=== PATIENT | male | born 1970 | race Caucasian/White ===

== ENCOUNTER 2016-12-08 10:26 | Emergency (ER) | payer OTHER ==
[~2016-12-08] VITALS: Ht 167.6 cm; Wt 74.8 kg
[~2016-12-08 10:26] MED LIST: PERCOCET 325 MG1 TA2 PO
[2016-12-08] MEDS ORDERED: PERCOCET 5-3251 EACH PO (11:13)
--- NOTE | 2016-12-08 11:15 | ED EAR COMPLAINT ---
History of Present Illness General Chief Complaint: Ear Complaints Stated Complaint: CELLULITIS OF EAR LOBE Source: patient Exam Limitations: no limitations Vital Signs & Intake/Output Vital Signs & Intake/Output Vital Signs Date Time Temp Pulse Resp B/P Pulse O2 O2 Flow FiO2 Ox Delivery Rate 12/08 1039 98.9 71 20 134/89 96 Room Air Allergies Coded Allergies: NO KNOWN ALLERGIES (12/08/16) Reconcile Medications Clindamycin HCl 300 MG CAPSULE 1 CAP PO Q6 ANTIBIOTIC, INFECTION (Reported) Ibuprofen 600 MG TABLET 1 TAB PO Q6 PAIN (Reported) with food Ofloxacin 0.3 % DROPS 10 GTT OT BID ANTIBIOTIC, INFECTION (Reported) Triage Note: TRIAGE: PT TO ER C/C PAIN FROM L EAR TO L CHEEK. ONSET THURSDAY, CONSTANT AND WORSENING SINCE ONSET. [facility], WAS DIAGNOSED WITH CELLULITIS. WAS GIVEN CLINDAMYCIN, IBUPROFEN AND OFLOXACIN GTTS. WENT TODAY FOR RECHECK AND WAS REFERRED TO ER FOR EVAL. Triage Nurses Notes Reviewed? yes Onset: Abrupt Duration: day(s):, constant, continues in ED Timing: recent history Injury Environment: home Severity: moderate, severe No Modifying Factors: none HPI: 46-year-old male comes into emergency room for further evaluation of left ear pain has been going on recently. Patient reports that he went to a walk-in clinic couple days ago and was started on oral antibiotics for an ear infection. Patient was also given topical drops and Motrin for pain. Patient reports that the ear pain has been persistent radiates down left side of his jaw. Denies any chest pain or shortness of breath. Denies any vomiting. Denies any fever. Denies any trauma or any other associated symptoms. (EMMANUEL SANCHEZ) Past History Travel History Traveled to [place] past 21 day No Medical History Any Pertinent Medical History? 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 No (EMMANUEL SANCHEZ) Review of Systems Review of Systems Constitutional: Reports: no symptoms. EENTM: Reports: see HPI. Respiratory: Reports: no symptoms. Cardiovascular: Reports: no symptoms. GI: Reports: no symptoms. Genitourinary: Reports: no symptoms. Musculoskeletal: Reports: no symptoms. Skin: Reports: no symptoms. Neurological/Psychological: Reports: no symptoms. Hematologic/Endocrine: Reports: no symptoms. Immunologic/Allergic: Reports: no symptoms. All Other Systems: Reviewed and Negative (EMMANUEL SANCHEZ) Physical Exam Physical Exam General Appearance: well developed/nourished Head: atraumatic Eyes: Bilateral: normal appearance, EOMI. Ears: Left: canal normal, Tympanic dull. Nose: normal inspection Mouth/Throat: normal mouth inspection, pharynx normal, TENDERNESS OVER LEFT tmj Neck: normal inspection Cardiovascular/Respiratory: no respiratory distress Back: normal inspection Neurologic/Psych: awake, alert, oriented x 3, normal mood/affect Skin: intact, normal color, warm/dry (EMMANUEL SANCHEZ) Progress Differential Diagnoses I considered the following diagnoses in my evaluation of the patient: Otitis media, dental infection, otitis externa, TMJ, Plan of Care: 12/08/2016 11:29:57 AM ResumE antibiotics. This could potentially be dental or TMJ related. Patient referred to dentist. Return if any other concerns worsening symptoms. Patient clinically looks well. Initial ED EKG: none (EMMANUEL SANCHEZ) Departure Departure Disposition: HOME OR SELF CARE Condition: Stable Clinical Impression Primary Impression: Left ear pain Referrals: SHEA ARELLANO,ORIANA DAWSON (PCP/Family) Additional Instructions: Continue taking oral antibitoics as prescribed. take percocet as prescribed. rest. return if any other concerns/worsening of symptoms. F/U with dentist and ENT dr. Please go over all results of today's visit with your primary care doctor. Contact your primary care doctor to let them know you were here in the emergency room. There may be nonspecific findings which may not be related to your visit today here in the emergency room but may require further evaluation and chronic monitoring by your primary care doctor. If you had a laceration today the chance of foreign body always remains. You should follow-up with your primary care doctor for recheck in 3-5 days for a wound check. If you had an x-ray done there is a chance that a fracture could have been missed on initial read and you should follow-up with your primary care doctor for repeat x-rays if symptoms persist. If your blood pressure was elevated here in the emergency room please have rechecked by her primary care doctor within the next 48 hours by your primary care doctor. If you were prescribed a narcotic here in the emergency room or any type of controlled substances you're not allowed to drive while taking this medication or operate any type of heavy machinery. Narcotics can make you feel lightheaded dizziness nausea and can cause constipation. You may need to sisal picker a stool softener. Thank you for choosing [facility] emergency room. Please return to the emergency room immediately if you have any other concerns worsening of symptoms. Departure Forms: Customer Survey General Discharge Information (EMMANUEL SANCHEZ) PA/HEAD WRESTLING COACH Co-Sign Statement Statement: ED Attending supervision documentation- [] I saw and evaluated the patient. I have also reviewed all the pertinent lab results and diagnostic results. I agree with the findings and the plan of care as documented in the PA's/HEAD WRESTLING COACH's documentation. [X] I have reviewed the ED Record and agree with the PA's/HEAD WRESTLING COACH's documentation. [] Additions or exceptions (if any) to the PAs/HEAD WRESTLING COACH's note and plan are summarized below: [] (SAMSON ARELLANO,FRANSISCO)
[2016-12-08] MEDS ORDERED: IBUPROFEN600 M1 PO (11:21)
[2016-12-08] MEDS ORDERED: OFLOXACIN5 M1 OT (11:22)
[2016-12-08] MEDS ORDERED: CLINDAMYCIN HC300 M1 PO (11:22)
[2016-12-08 11:48] VITALS: BP 130/88
== END 2016-12-08 11:48 ==
LOC: ERH 10:26
DX: H92.02 Otalgia, left ear (principal)

== ENCOUNTER 2017-01-01 17:28 | Emergency (ER) | payer OTHER ==
[~2017-01-01 17:28] MED LIST changes: +CLINDAMYCIN HC300 M1 PO; +IBUPROFEN600 M1 PO; +OFLOXACIN5 M1 OT; +PERCOCET 5-3251 EACH PO
[2017-01-01 18:24] LABS: ABSOLUTE BASOPHIL COUNT 0 /CUMM (0.0-0.2); ABSOLUTE EOSINOPHIL COUNT 0.1 /CUMM (0.0-0.7); ABSOLUTE GRANULOCYTE CT 9.4 /CUMM (1.4-6.5); ABSOLUTE LYMPH COUNT 1.8 /CUMM (1.2-3.4); ABSOLUTE MONOCYTE COUNT 1.2 /CUMM (0.10-0.60); BASOPHIL % 0.2 % (0.0-2.0); EOSINOPHIL % 1.1 % (0-5); HEMATOCRIT 40.4 % (42-52); MEAN CORPUSCULAR HGB 32.3 PG (27.0-31.0); MEAN CORPUSCULAR VOLUME 95.2 FL (80.0-94.0); MEAN PLATELET VOLUME 8.5 FL (7.4-10.4); PLATELET COUNT 280 /CUMM (130-400); RBC DISTRIBUTION WIDTH 12.7 % (11.5-14.5); RED BLOOD CELL CT 4.24 /CUMM (4.70-6.10); WHITE BLOOD CELL COUNT 12.5 /CUMM (4.8-10.8)
--- NOTE | 2017-01-01 18:55 | ED GI/GU/ABDOMINAL COMPLAINT ---
History of Present Illness General Chief Complaint: Abdominal Pain/Flank Pain Stated Complaint: ABD PAIN, +ND, BEAUCHAMP, X 4 DAYS Source: patient, family Exam Limitations: no limitations Vital Signs & Intake/Output Vital Signs & Intake/Output Vital Signs Date Time Temp Pulse Resp B/P Pulse O2 O2 Flow FiO2 Ox Delivery Rate 01/01 2017 98.5 78 20 114/70 98 01/01 1758 99.1 80 16 125/75 98 Room Air Allergies Coded Allergies: NO KNOWN ALLERGIES (12/08/16) Triage Note: TRIAGE; PT TO ED C/O STOMACH PAINS X1 WEEK GETTING WORSE. STATES UNABLE TO KEEP ANYTHING DOWN. STATES EVERYTHING HAS A FUNNY METALLIC TASTE WELL. C/O BEAUCHAMP AND JOINTS ACHY WELL. HAS A HX OF DIVERTICULITIS AND 6INCHES OF COLON REMOVED. STATES PAIN FEELS LIKE THE DIVERTICULITIS, DENIES ANY VISIBLE BLOOD IN STOOLS, BUT STOOLS ARE DARK. Triage Nurses Notes Reviewed? yes Duration: getting worse Timing: recent history Quality/Severity: sharpness, severe, stabbing Severity Numbers: 7 Location: left lower quadrant Radiation: no radiation Activities at Onset: none Prior Abdominal Problems: similar symptoms HPI: Patient is a 46-year-old male with a past medical history of diverticulitis with colon resection who presents to emergency with a six-day history of loose watery diarrhea production and left lower quadrant pain. Patient has been on antibiotics approximately 2 weeks ago for tooth extraction Denies any bright red blood or melena stool. Denies any fevers but does have chills. Patient is able tolerate by mouth with worsening symptoms. No vomiting has occurred. (ELLEN CRUZ,NESS) Reconcile Medications Ciprofloxacin HCl (Cipro) 500 MG TABLET 1 TAB PO BID DIVERTICULITIS Clindamycin HCl 300 MG CAPSULE 1 CAP PO Q6 ANTIBIOTIC, INFECTION (Reported) Ibuprofen 600 MG TABLET 1 TAB PO Q6 PAIN (Reported) with food Metronidazole (Flagyl) 500 MG TABLET 1 TAB PO TID DIVERTICULITIS (ANA LILIA PAUL MD) Past History Travel History Traveled to [place] past 21 day No Medical History Any Pertinent Medical History? 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 No (NESS VELASQUEZ) Review of Systems Review of Systems Constitutional: Reports: see HPI, chills. Denies: fever. EENTM: Reports: no symptoms. Respiratory: Reports: no symptoms. Cardiovascular: Reports: no symptoms. GI: Reports: see HPI, abdominal pain, diarrhea. Genitourinary: Reports: no symptoms. Musculoskeletal: Reports: no symptoms. Skin: Reports: no symptoms. Neurological/Psychological: Reports: no symptoms. Hematologic/Endocrine: Reports: no symptoms. Immunologic/Allergic: Reports: no symptoms. All Other Systems: Reviewed and Negative (NESS VELASQUEZ) Physical Exam Physical Exam General Appearance: no apparent distress, alert, comfortable Gastrointestinal: normal bowel sounds, soft, MODERATE LEFT LOWER QUADRANT POINT TENDERNESS, NO REBOUND TENDERNESS NO PERITONEAL SIGNS. nO RIGHT LOWER QUADRANT PAIN Comments: Well-developed well-nourished person in no acute distress HEENT: Normal EENT exam Neck: Supple, no lymphadenopathy, normal range of motion without pain or tenderness Back: Nontender, no CVA tenderness. Cardiovascular: Regular rate and rhythms no murmurs rubs or gallops, normal JVP Respiratory: Chest nontender. No respiratory distress.breath sounds clear to auscultation bilaterally Extremity: No edema, no calf tenderness to palpation, normal and equal pulses. Neuro: Alert oriented x3, motor sensory normal, Skin: No appreciable rash on exposed skin, skin is warm and dry. Psych: Mood and affect is normal, memory and judgment is normal. Core Measures ACS in differential dx? No Severe Sepsis Present: No Septic Shock Present: No (NESS VELASQUEZ) Progress Differential Diagnosis: AAA, AMI, appendicitis, biliary colic, bowel obstruction , colon cancer, cholecystitis, diverticulitis, epididymitis, esophageal varices, gastritis, hepatitis, hernia, hemorrhoids, ischemic bowel, inflamm bowel dis, Shanthi-Matt tear, orchitis, pancreatitis, prostatitis, peptic ulcer, PUD/GERD, perforated viscous, pyelonephritis, SBO, testicular torsion, ureterolithiasis, urinary retention, urethritis, UTI/pyelo Plan of Care: Orders Procedure Date/time Status CULTURE,STOOL 01/01 1855 Active OVA AND PARASITE ANTIGENS 01/01 1855 Active C.DIFFICILE 01/01 1855 Active Add-on Test (ER Only) 01/01 1853 Active LIPASE 01/01 1800 Complete COMPREHENSIVE METABOLIC PANEL 01/01 1800 Complete CBC WITHOUT DIFFERENTIAL 01/01 1800 Complete AMYLASE 01/01 1800 Complete Laboratory Tests 01/01/17 1800: Anion Gap 12, Estimated GFR > 60, BUN/Creatinine Ratio 13.3, Glucose 76, Calcium 9.1, Total Bilirubin 0.4, AST 36, ALT 99 H, Alkaline Phosphatase 87, Total Protein 7.1, Albumin 4.1, Globulin 3.0, Albumin/Globulin Ratio 1.4, Amylase 51, Lipase 40, CBC w Diff NO MAN DIFF REQ, RBC 4.24 L, MCV 95.2 H, MCH 32.3 H, RDW 12.7, MPV 8.5, Gran % 75.0, Lymphocytes % 14.3 L, Monocytes % 9.4 H, Eosinophils % 1.1, Basophils % 0.2, Absolute Granulocytes 9.4 H, Absolute Lymphocytes 1.8, Absolute Monocytes 1.2 H, Absolute Eosinophils 0.1, Absolute Basophils 0, PUBS MCHC 34.0 Microbiology 01/01 1855 STOOL: Cryptosporidium Antigen - ORD 01/01 1855 STOOL: Giardia Antigen (ELIER) - ORD 01/01 1855 STOOL: Clostridium difficile Toxin A & B - ORD 01/01 1855 STOOL: Stool Culture - ORD CT scan was remarkable for thickening of COLON IN which patient due to significant history of diverticulitis and bowel resection was administered prescriptions for ciprofloxacin and Flagyl for concerns of diverticulitis. Patient was strongly advised to establish a mortar mixer operator Dr. Cole. Patient was able tolerate by mouth patient was afebrile nontoxic in no apparent distress on discharge (ELLEN CRUZ,NESS) Diagnostic Imaging: Viewed by Me: CT Scan. Radiology Impression: acute abnormality Initial ED EKG: none Comments: PATIENT: ACACIA HERNANDEZ PRESENT AGE: 46 PATIENT ACCOUNT NO: [id number] : 71 LOCATION: [facility] ORDERING PHYSICIAN: NESS CRUZ SERVICE DATE: 01/01/17 EXAM TYPE: CAT - CT ABD & PELVIS W IV CONTRAST EXAMINATION: CT ABDOMEN AND PELVIS WITH CONTRAST CLINICAL INFORMATION: Abdominal pain. History of diverticulitis. COMPARISON: CT abdomen 05/01/2014. TECHNIQUE: Multidetector volumetric imaging was performed of the abdomen and pelvis before and after the IV administration of 95 mL of Optiray 320 intravenous contrast. Sagittal and coronal reformatted images were obtained on the technologist's workstation. DLP: 300 mGy-cm FINDINGS: LUNG BASES: The visualized lung bases are unremarkable. LIVER, GALLBLADDER, AND BILIARY TREE: The liver is normal in size, shape, and attenuation. There is a stable ill-defined hypoattenuating lesion within the left hepatic lobe measuring approximately 1 cm (series 2, image 17). No biliary ductal dilatation is present. The gallbladder is decompressed, without evidence of radiopaque gallstones, gallbladder wall thickening, or obvious pericholecystic inflammatory changes. PANCREAS: Unremarkable. SPLEEN: Unremarkable. ADRENAL GLANDS: Unremarkable. KIDNEYS AND URETERS: The kidneys are normal in size and enhance homogeneously, without focal lesions. There is a 3 mm nonobstructing stone within the midpole of the right kidney. No left-sided renal stones are identified. There are no ureteral stones and there is no appreciable hydroureteronephrosis of either kidney or renal collecting system. BLADDER: Unremarkable. GASTROINTESTINAL TRACT: Evaluation of the gastrointestinal system is notable for postsurgical changes related to partial sigmoid resection and distal colonic anastomosis. Abdominal and pelvic bowel loops are normal in caliber, without findings indicative of obstruction or ileus. Of note, there is mild circumferential thickening and mucosal hyperemia of the colon, notably the cecum and ascending colon as well as the transverse and descending colon. There are mild surrounding inflammatory changes, notably within the right lower quadrant of the abdomen. This finding is nonspecific but could reflect an acute infectious or inflammatory colitis. Given the presence of diverticula along the cecum, a mild or developing cecal diverticulitis cannot be excluded. The appendix is surgically absent. Abdominal and pelvic bowel loops are normal in caliber, without findings indicative of small bowel obstruction or ileus. No organizing intra-abdominal or pelvic fluid collections are identified and there is no free intraperitoneal air. ABDOMINAL WALL: Small fat-containing umbilical hernia. LYMPH NODES: Subcentimeter shotty lymph nodes within the right lower quadrant of the abdomen. No pathologically enlarged abdominal or pelvic lymph nodes. VASCULAR: Patent abdominal vasculature. Normal course and caliber of the abdominal aorta and its branching vessels, without aneurysmal dilatation. PELVIC VISCERA: Unremarkable. OSSEOUS STRUCTURES: No acute osseous abnormality. Moderate degenerative changes of the lumbar spine at L2-L3. No visible destructive osseous lesions. Normal alignment of the imaged thoracolumbar spine. IMPRESSION: 1. Circumferential thickening and mucosal hyperemia involving the colon, notably the cecum and ascending colon as well as the transverse and descending colon. This constellation of findings could reflect an acute infectious or inflammatory colitis. Of note, there are mild pericolonic inflammatory changes within the right lower quadrant of the abdomen, adjacent to the cecum. Given the presence of diverticula within this region, a very mild or developing cecal diverticulitis cannot be excluded. Correlate with patient symptomatology. 2. A 3 mm nonobstructing stone within the midpole of the right kidney. (NESS VELASQUEZ) Departure Departure Disposition: HOME OR SELF CARE Condition: Stable Clinical Impression Primary Impression: Abdominal pain Referrals: RAFY ARELLANO,ORIANA GREEN (PCP/Family) Additional Instructions: As discussed, Begin [id number] ibuprofen and/or Tylenol as directed for pain and inflammation. Begin a 24-hour clear liquid and bland diet to rest your bowels. Tomorrow please follow up and establish a mortar mixer operator Dr. HILLMAN for further evaluation treatment. Begin the prescription of ciprofloxacin and Flagyl for your symptoms. Begin eating plain yogurt to improve your abdominal symptoms. If symptoms worsen return to emergency room. Prescription is awaiting a [facility] pharmacy Departure Forms: Customer Survey General Discharge Information Prescriptions: Current Visit Scripts Ciprofloxacin HCl (Cipro) 1 TAB PO BID #20 TAB Metronidazole (Flagyl) 1 TAB PO TID #30 TAB (NESS VELASQUEZ) PA/ANIMAL CARE ASSISTANT Co-Sign Statement Statement: ED Attending supervision documentation- [] I saw and evaluated the patient. I have also reviewed all the pertinent lab results and diagnostic results. I agree with the findings and the plan of care as documented in the PA's/ANIMAL CARE ASSISTANT's documentation. x I have reviewed the ED Record and agree with the PA's/ANIMAL CARE ASSISTANT's documentation. [] Additions or exceptions (if any) to the PAs/ANIMAL CARE ASSISTANT's note and plan are summarized below: [] (BEVERLY ARELLANO,ANA LILIA)
--- NOTE | 2017-01-01 20:01 | CT SCAN REPORT ---
EXAMINATION: CT ABDOMEN AND PELVIS WITH CONTRAST CLINICAL INFORMATION: Abdominal pain. History of diverticulitis. COMPARISON: CT abdomen 05/01/2014. TECHNIQUE: Multidetector volumetric imaging was performed of the abdomen and pelvis before and after the IV administration of 95 mL of Optiray 320 intravenous contrast. Sagittal and coronal reformatted images were obtained on the technologist's workstation. DLP: 300 mGy-cm FINDINGS: LUNG BASES: The visualized lung bases are unremarkable. LIVER, GALLBLADDER, AND BILIARY TREE: The liver is normal in size, shape, and attenuation. There is a stable ill-defined hypoattenuating lesion within the left hepatic lobe measuring approximately 1 cm (series 2, image 17). No biliary ductal dilatation is present. The gallbladder is decompressed, without evidence of radiopaque gallstones, gallbladder wall thickening, or obvious pericholecystic inflammatory changes. PANCREAS: Unremarkable. SPLEEN: Unremarkable. ADRENAL GLANDS: Unremarkable. KIDNEYS AND URETERS: The kidneys are normal in size and enhance homogeneously, without focal lesions. There is a 3 mm nonobstructing stone within the midpole of the right kidney. No left-sided renal stones are identified. There are no ureteral stones and there is no appreciable hydroureteronephrosis of either kidney or renal collecting system. BLADDER: Unremarkable. GASTROINTESTINAL TRACT: Evaluation of the gastrointestinal system is notable for postsurgical changes related to partial sigmoid resection and distal colonic anastomosis. Abdominal and pelvic bowel loops are normal in caliber, without findings indicative of obstruction or ileus. Of note, there is mild circumferential thickening and mucosal hyperemia of the colon, notably the cecum and ascending colon as well as the transverse and descending colon. There are mild surrounding inflammatory changes, notably within the right lower quadrant of the abdomen. This finding is nonspecific but could reflect an acute infectious or inflammatory colitis. Given the presence of diverticula along the cecum, a mild or developing cecal diverticulitis cannot be excluded. The appendix is surgically absent. Abdominal and pelvic bowel loops are normal in caliber, without findings indicative of small bowel obstruction or ileus. No organizing intra-abdominal or pelvic fluid collections are identified and there is no free intraperitoneal air. ABDOMINAL WALL: Small fat-containing umbilical hernia. LYMPH NODES: Subcentimeter shotty lymph nodes within the right lower quadrant of the abdomen. No pathologically enlarged abdominal or pelvic lymph nodes. VASCULAR: Patent abdominal vasculature. Normal course and caliber of the abdominal aorta and its branching vessels, without aneurysmal dilatation. PELVIC VISCERA: Unremarkable. OSSEOUS STRUCTURES: No acute osseous abnormality. Moderate degenerative changes of the lumbar spine at L2-L3. No visible destructive osseous lesions. Normal alignment of the imaged thoracolumbar spine. IMPRESSION: 1. Circumferential thickening and mucosal hyperemia involving the colon, notably the cecum and ascending colon as well as the transverse and descending colon. This constellation of findings could reflect an acute infectious or inflammatory colitis. Of note, there are mild pericolonic inflammatory changes within the right lower quadrant of the abdomen, adjacent to the cecum. Given the presence of diverticula within this region, a very mild or developing cecal diverticulitis cannot be excluded. Correlate with patient symptomatology. 2. A 3 mm nonobstructing stone within the midpole of the right kidney.
[2017-01-01] MEDS ORDERED: CIPRO500 M1 PO (20:15)
[2017-01-01] MEDS ORDERED: FLAGYL500 MG PO (20:15)
[2017-01-01 20:17] VITALS: BP 114/70
== END 2017-01-01 20:36 ==
LOC: ERH 17:28
PROVIDERS: Emergency Medicine
DX: R10.32 Left lower quadrant pain (principal)
CPT/HCPCS: 74177; 87045; 87328; 87329

== ENCOUNTER 2017-01-05 12:19 | Emergency (ER) | payer OTHER ==
[~2017-01-05] VITALS: Ht 167.6 cm; Wt 75.3 kg
[~2017-01-05 12:19] MED LIST changes: +CIPRO500 M1 PO; +FLAGYL500 MG PO
[2017-01-05 12:53] LABS: ABSOLUTE BASOPHIL COUNT 0.1 /CUMM (0.0-0.2); ABSOLUTE EOSINOPHIL COUNT 0.2 /CUMM (0.0-0.7); ABSOLUTE GRANULOCYTE CT 5.1 /CUMM (1.4-6.5); ABSOLUTE LYMPH COUNT 2.2 /CUMM (1.2-3.4); ABSOLUTE MONOCYTE COUNT 0.5 /CUMM (0.10-0.60); BASOPHIL % 0.9 % (0.0-2.0); EOSINOPHIL % 2.4 % (0-5); GRANULOCYTE % 63.3 % (42.2-75.2); MEAN CORPUSCULAR HGB 32.1 PG (27.0-31.0); MEAN CORPUSCULAR HGB CONC 33.7 G/DL (33.0-37.0); MEAN CORPUSCULAR VOLUME 95.2 FL (80.0-94.0); PLATELET COUNT 380 /CUMM (130-400); RBC DISTRIBUTION WIDTH 12.3 % (11.5-14.5); RED BLOOD CELL CT 4.52 /CUMM (4.70-6.10); WHITE BLOOD CELL COUNT 8.1 /CUMM (4.8-10.8)
--- NOTE | 2017-01-05 15:41 | ED GI/GU/ABDOMINAL COMPLAINT ---
History of Present Illness General Chief Complaint: Abdominal Pain/Flank Pain Stated Complaint: ABD PAIN Source: patient Exam Limitations: no limitations Vital Signs & Intake/Output Vital Signs & Intake/Output Vital Signs Date Time Temp Pulse Resp B/P Pulse O2 O2 Flow FiO2 Ox Delivery Rate 01/05 1732 98.3 79 18 145/74 100 Room Air 01/05 1650 97.9 77 18 135/83 100 01/05 1545 99 Room Air 01/05 1235 97.8 73 18 144/78 99 Room Air Allergies Coded Allergies: NO KNOWN ALLERGIES (12/08/16) Reconcile Medications Ciprofloxacin HCl (Cipro) 500 MG TABLET 1 TAB PO BID DIVERTICULITIS Clindamycin HCl 300 MG CAPSULE 1 CAP PO Q6 ANTIBIOTIC, INFECTION (Reported) Ibuprofen 600 MG TABLET 1 TAB PO Q6 PAIN (Reported) with food Ketorolac Tromethamine 10 MG TABLET 1 TAB PO TID PRN PAIN RECEIVED IM IN ER Magnesium Citrate (Citrate Of Magnesia) 300 ML SOLUTION 296 ML PO ONCE PRN CONSTIPATION Metronidazole (Flagyl) 500 MG TABLET 1 TAB PO TID DIVERTICULITIS Triage Note: 46 Y/O MALE C/O CONTINUED LLQ PAIN; WAS EVAL'D IN ED THURSDAY AND GIVEN SCRIPTS FOR ANTIBIOTICS FOR DIVERTICULITIS; STATES HE HAS BEEN TAKING SAME BUT THE PAIN "IS NOT ANY BETTER". DENIES N/V/D. DENIES URINARY SYMPTOMS. DENIES FEVERS. PT HAS HISTORY OF REMOVAL OF 6 INCHES COLON MANY YEARS AGO Triage Nurses Notes Reviewed? yes Onset: Gradual Duration: constant Quality/Severity: sharpness, severe, stabbing Severity Numbers: 10 Radiation: no radiation Activities at Onset: none HPI: Patient is a 46-year-old male with a past medical history of opiate abuse and diverticulitis with colon resection who presents to emergency room with persistent left lower quadrant pain. Patient was evaluated 4 days ago by me in the emergency room for similar complaints as presented today which he had CT scan concerns of inflammatory versus infectious colitis where he was administered ciprofloxacin and Flagyl due to his past medical history patient states that he's been compliant with medications of antibiotics however states his pain is same patient can tolerate by mouth however states that symptoms are worse after ingestion. Patient still complains of loose watery bowel movements. No blood no melena noted. Denies any fever chills (ELLEN CRUZ,NESS) Past History Travel History Traveled to [place] past 21 day No Medical History Any Pertinent Medical History? 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 No (NESS VELASQUEZ) Review of Systems Review of Systems Constitutional: Reports: no symptoms. EENTM: Reports: no symptoms. Respiratory: Reports: no symptoms. Cardiovascular: Reports: no symptoms. GI: Reports: see HPI, abdominal pain. Genitourinary: Reports: no symptoms. Musculoskeletal: Reports: no symptoms. Skin: Reports: no symptoms. Neurological/Psychological: Reports: no symptoms. Hematologic/Endocrine: Reports: no symptoms. Immunologic/Allergic: Reports: no symptoms. All Other Systems: Reviewed and Negative (NESS VELASQUEZ) Physical Exam Physical Exam General Appearance: no apparent distress, alert, comfortable Gastrointestinal: normal bowel sounds, soft, LEFT LOWER QUADRANT POINT TENDERNESS NOTED, NO REBOUND TENDERNESS NO PERITONEAL SIGNS Comments: Well-developed well-nourished person in no acute distress HEENT: Normal EENT exam, Neck: Supple, no lymphadenopathy, normal range of motion without pain or tenderness Back: Nontender, no CVA tenderness. Cardiovascular: Regular rate and rhythms no murmurs rubs or gallops, normal JVP Respiratory: Chest nontender. No respiratory distress.breath sounds clear to auscultation bilaterally Extremity: No edema, no calf tenderness to palpation, normal and equal pulses. Neuro: Alert oriented x3, motor sensory normal, Skin: No appreciable rash on exposed skin, skin is warm and dry. Psych: Mood and affect is normal, memory and judgment is normal. Core Measures ACS in differential dx? No Severe Sepsis Present: No Septic Shock Present: No (NESS VELASQUEZ) Progress Differential Diagnosis: AAA, AMI, appendicitis, biliary colic, bowel obstruction , colon cancer, cholecystitis, diverticulitis, epididymitis, esophageal varices, gastritis, hepatitis, hernia, hemorrhoids, ischemic bowel, inflamm bowel dis, Shanthi-Matt tear, orchitis, pancreatitis, prostatitis, peptic ulcer, PUD/GERD, perforated viscous, pyelonephritis, SBO, STD, testicular torsion, ureterolithiasis, urinary retention, urethritis, UTI/pyelo Plan of Care: Orders Procedure Date/time Status LACTIC ACID 01/05 1536 Active URINALYSIS 01/05 1236 Active LACTIC ACID 01/05 1236 Complete COMPREHENSIVE METABOLIC PANEL 01/05 1236 Complete CBC WITHOUT DIFFERENTIAL 01/05 1236 Complete Laboratory Tests 01/05/17 1239: Anion Gap 10, Estimated GFR > 60, BUN/Creatinine Ratio 13.0, Glucose 120 H, Lactic Acid 1.3, Calcium 9.8, Total Bilirubin 0.4, AST 86 H, ALT 108 H, Alkaline Phosphatase 77, Total Protein 7.0, Albumin 4.1, Globulin 2.9, Albumin/ Globulin Ratio 1.4, CBC w Diff NO MAN DIFF REQ, RBC 4.52 L, MCV 95.2 H, MCH 32.1 H, RDW 12.3, MPV 8.0, Gran % 63.3, Lymphocytes % 26.9, Monocytes % 6.5, Eosinophils % 2.4, Basophils % 0.9, Absolute Granulocytes 5.1, Absolute Lymphocytes 2.2, Absolute Monocytes 0.5, Absolute Eosinophils 0.2, Absolute Basophils 0.1, PUBS MCHC 33.7 Patient currently is in no apparent distress afebrile patient can tolerate by mouth patient has concerns of constipation on CT scan. Patient was strongly advised to begin bowel regimen treatment for constipation. Upon discharge patient looks well no apparent distress and will comply with discharge junctions and had no questions (ELLEN CRUZ,NESS) Diagnostic Imaging: Viewed by Me: CT Scan. Radiology Impression: SEE COMMENTS Initial ED EKG: none Comments: PATIENT: ACACIA HERNANDEZ PRESENT AGE: 46 PATIENT ACCOUNT NO: [id number] : 71 LOCATION: [facility] ORDERING PHYSICIAN: NESS CRUZ SERVICE DATE: 01/05/17 EXAM TYPE: CAT - CT ABD & PELVIS W/O IV CONTRAS EXAMINATION: CT ABDOMEN AND PELVIS WITHOUT CONTRAST CLINICAL INFORMATION: Left lower quadrant pain. History of diverticulitis. COMPARISON: CT scan abdomen pelvis 01/01/2017. TECHNIQUE: Multidetector volumetric imaging was performed from the superior aspect of the liver through the pubic symphysis. Sagittal and coronal reformatted images were obtained on the technologist's workstation. No oral or intravenous contrast. DLP: 280.66 mGy-cm FINDINGS: LUNG BASES: The visualized lung bases are unremarkable. LIVER, GALLBLADDER, AND BILIARY TREE: The liver is normal in size, shape, and attenuation. No focal hepatic lesion or biliary ductal dilatation is present. Gallbladder is contracted. There is no bile duct dilatation. The extrahepatic CBD measures 5 mm. No calcified gallstones in the bile ducts. PANCREAS: Unremarkable. SPLEEN: Unremarkable. ADRENAL GLANDS: Unremarkable. KIDNEYS AND URETERS: 2 mm nonobstructive right renal stone in the midpole. No ureteral calculus. No hydronephrosis. BLADDER: Unremarkable. GASTROINTESTINAL TRACT: Surgical suture line at the sigmoid colon. No acute change of the bowel. No bowel obstruction. No bowel wall thickening or edema. There are a few diverticula of colon but no diverticulitis. There is a large volume of stool throughout the colon. The appendix is not seen. No inflammation the mesentery. Small bowel loops are normal. ABDOMINAL WALL: Small fat-containing umbilical hernia. LYMPH NODES: Normal. VASCULAR: Vascular wall calcifications of aorta. PELVIC VISCERA: Unremarkable. OSSEOUS STRUCTURES: Degenerative spondylosis of spine with endplate spurs of the vertebrae at L2-L3 with disc height narrowing and endplate sclerosis. Small spur also anterior superior endplate of L4 vertebral body. Bilateral spondylolysis of the L5 pars interarticularis without spondylolisthesis. IMPRESSION: No acute abnormality CT scan abdomen and pelvis. No acute change of bowel. There is a large volume of stool in the colon but no bowel obstruction. Status post partial colectomy with surgical suture line at the sigmoid. (ELLEN CRUZ,NESS) Departure Departure Disposition: HOME OR SELF CARE Condition: Stable Clinical Impression Primary Impression: Abdominal pain Secondary Impressions: Constipation Referrals: ORIANA COHN (PCP/Family) Additional Instructions: As discussed continue home medications as directed. Begin the prescription OF ketorolac for pain and inflammation. Begin the prescription of magnesium citrate for your symptoms. Prescriptions are waiting at [facility] pharmacy. Continue to follow-up with your already made appointment for GI. Begin drinking plenty of water and a high fiber diet. Begin [id number] stool softener DOCULSATE. If symptoms worsen return to emergency room Departure Forms: Customer Survey General Discharge Information Prescriptions: Current Visit Scripts Ketorolac Tromethamine 1 TAB PO TID PRN PAIN #15 TAB RECEIVED IM IN ER Magnesium Citrate (Citrate Of Magnesia) 296 ML PO ONCE PRN CONSTIPATION #296 ML Ref 1 (ELLEN CRUZ,NESS) PA/DEVELOPER DESIGNER Co-Sign Statement Statement: ED Attending supervision documentation- [] I saw and evaluated the patient. I have also reviewed all the pertinent lab results and diagnostic results. I agree with the findings and the plan of care as documented in the PA's/DEVELOPER DESIGNER's documentation. [X] I have reviewed the ED Record and agree with the PA's/DEVELOPER DESIGNER's documentation. [] Additions or exceptions (if any) to the PAs/DEVELOPER DESIGNER's note and plan are summarized below: [] (JULIÁN YAÑEZ DO)
--- NOTE | 2017-01-05 16:51 | CT SCAN REPORT ---
EXAMINATION: CT ABDOMEN AND PELVIS WITHOUT CONTRAST CLINICAL INFORMATION: Left lower quadrant pain. History of diverticulitis. COMPARISON: CT scan abdomen pelvis 01/01/2017. TECHNIQUE: Multidetector volumetric imaging was performed from the superior aspect of the liver through the pubic symphysis. Sagittal and coronal reformatted images were obtained on the technologist's workstation. No oral or intravenous contrast. DLP: 280.66 mGy-cm FINDINGS: LUNG BASES: The visualized lung bases are unremarkable. LIVER, GALLBLADDER, AND BILIARY TREE: The liver is normal in size, shape, and attenuation. No focal hepatic lesion or biliary ductal dilatation is present. Gallbladder is contracted. There is no bile duct dilatation. The extrahepatic CBD measures 5 mm. No calcified gallstones in the bile ducts. PANCREAS: Unremarkable. SPLEEN: Unremarkable. ADRENAL GLANDS: Unremarkable. KIDNEYS AND URETERS: 2 mm nonobstructive right renal stone in the midpole. No ureteral calculus. No hydronephrosis. BLADDER: Unremarkable. GASTROINTESTINAL TRACT: Surgical suture line at the sigmoid colon. No acute change of the bowel. No bowel obstruction. No bowel wall thickening or edema. There are a few diverticula of colon but no diverticulitis. There is a large volume of stool throughout the colon. The appendix is not seen. No inflammation the mesentery. Small bowel loops are normal. ABDOMINAL WALL: Small fat-containing umbilical hernia. LYMPH NODES: Normal. VASCULAR: Vascular wall calcifications of aorta. PELVIC VISCERA: Unremarkable. OSSEOUS STRUCTURES: Degenerative spondylosis of spine with endplate spurs of the vertebrae at L2-L3 with disc height narrowing and endplate sclerosis. Small spur also anterior superior endplate of L4 vertebral body. Bilateral spondylolysis of the L5 pars interarticularis without spondylolisthesis. IMPRESSION: No acute abnormality CT scan abdomen and pelvis. No acute change of bowel. There is a large volume of stool in the colon but no bowel obstruction. Status post partial colectomy with surgical suture line at the sigmoid.
[2017-01-05] MEDS ORDERED: KETOROLAC TROME10 M1 PO (17:09)
[2017-01-05] MEDS ORDERED: CITRATE OF MAG300 ML PO (17:10)
[2017-01-05 17:32] VITALS: BP 145/74
== END 2017-01-05 17:33 ==
LOC: ERH 12:19
PROVIDERS: Emergency Medicine
DX: K59.00 Constipation, unspecified (principal)
CPT/HCPCS: 74176; 96372; J1885